=== PATIENT | female | born 1980 | race Caucasian/White ===

== ENCOUNTER → 2018-03-25 | Day surgery (SDC) | payer OTHER ==
[~2018-03-25] MED LIST: ACETAMINOPHEN 0 MG/0 ML RTUPB IV ONE; CEFAZOLIN 2 GM/D5W RTU 2 GM/50 ML RTUPB IV ONE; CEFAZOLIN 2 GM/D5W RTU 2 GM/50 ML RTUPB IV PRN; FENTANYL CITRATE INJ/PF 100 MCG/2 ML AMPUL ONE; LIDOCAINE 1% INJ-PF (10 MG/ML) 30 ML SDV ONE; METOCLOPRAMIDE HCL INJ/PF 10 MG/2 ML SDV IV ONE; METOCLOPRAMIDE HCL INJ/PF 10 MG/2 ML SDV ONE; MIDAZOLAM 2 MG/2 ML INJ ONE; ONDANSETRON HCL INJ/PF 4 MG/2 ML SDV ONE; PROPOFOL INJ 200 MG/20 ML VIAL IV ONE; RINGERS SOLUTION,LACTATED 1,000 ML IV ONE
[2018-03-25 15:06] LABS: HEMATOCRIT 41.7 % (36.0-47.0); HEMOGLOBIN 14.1 g/dL (12.0-15.5); MEAN CORPUSCULAR HEMOGLOBIN 28.2 pg (27.0-33.4); MEAN CORPUSCULAR HGB CONC 33.7 g/dL (32.0-36.0); MEAN CORPUSCULAR VOLUME 84 fl (80-97); PLATELET COUNT 228 10^3/uL (150-450); RED BLOOD COUNT 4.98 10^6/uL (3.72-5.28); RED CELL DISTRIBUTION WIDTH 15.2 % (11.5-14.0); WHITE BLOOD COUNT 7.2 10^3/uL (4.0-10.5)
[2018-03-25 15:11] VITALS: BP 111/73
== END ==
LOC: OROUT 14:09
PROVIDERS: ATTEND Orthopaedic Surgery
DX: M65.311 Trigger thumb, right thumb (principal); Z53.29 Procedure and treatment not carried out because of patient's decision for other reasons; R42 Dizziness and giddiness
CPT/HCPCS: 36415; 84703; 85027; J2250; J2765; J0690; J0131; J2405; J2704; J3010; J3490

== ENCOUNTER 2018-04-01 11:11 | Day surgery (SDC) | payer OTHER ==
[~2018-04-01 11:11] MED LIST changes: -ACETAMINOPHEN 0 MG/0 ML RTUPB IV ONE; +ACETAMINOPHEN 1,000 MG/100 ML RTUPB IV ONE; -CEFAZOLIN 2 GM/D5W RTU 2 GM/50 ML RTUPB IV ONE; +DEXAMETHASONE SOD PHOSPHATE INJ 4 MG/1 ML VIAL ONE; +LIDOCAINE 2% INJ-PF (20 MG/ML) 10 ML AMPUL ONE; -METOCLOPRAMIDE HCL INJ/PF 10 MG/2 ML SDV IV ONE; -METOCLOPRAMIDE HCL INJ/PF 10 MG/2 ML SDV ONE; -RINGERS SOLUTION,LACTATED 1,000 ML IV ONE
[2018-04-01] MEDS ORDERED: CEFAZOLIN 2 GM/D5W RTU 2 GM/50 ML RTUPB IV ONE (12:27)
[2018-04-01] MEDS ORDERED: MIDAZOLAM 2 MG/2 ML INJ ONE ×2 (12:37→14:17)
[2018-04-01] MEDS ORDERED: METOCLOPRAMIDE HCL INJ/PF 10 MG/2 ML SDV ONE (12:41)
[2018-04-01] MEDS ORDERED: MORPHINE SULFATE 10 MG/ML INJ IV PRN (15:38)
[2018-04-01] MEDS ORDERED: PROMETHAZINE HCL INJ 25 MG/1 ML VIAL IV PRN ×2 (15:38)
[2018-04-01] MEDS ORDERED: DIPHENHYDRAMINE HCL 50 MG/ML VIAL IV PRN (15:38)
[2018-04-01] MEDS ORDERED: ONDANSETRON HCL INJ/PF 4 MG/2 ML SDV IV PRN ×2 (15:38→15:49)
[2018-04-01] MEDS ORDERED: FENTANYL CITRATE INJ/PF 100 MCG/2 ML AMPUL IV PRN ×3 (15:38)
[2018-04-01] MEDS ORDERED: MEPERIDINE HCL/PF INJ 25 MG/1 ML DISP.SYRIN IV PRN (15:38)
[2018-04-01] MEDS ORDERED: HYDROCODONE/ACETAMINOPHEN 5-325 MG TABLET PO PRN (15:49)
--- NOTE | 2018-04-01 15:49 | Discharge Summary ---
Discharge Summary (SDC) - Discharge Final Diagnosis: Right Trigger Thumb Date of Surgery: 04/01/18 Discharge Date: 04/01/18 Condition: Good Treatment or Instructions: Schedule Follow Up w/ Dr. Dez Gilbert @ [facility] to be seen in 10-14 days or as scheduled [place]: [place]: [place]: May remove dressing on postop day #3, keep incision covered and dry. Ice and elevate May begin finger range of motion attempting to make full fist. Stool softener of choice when on pain medication. Do not take hydrocodone while breast-feeding until approved by processes chemical design engineer Prescriptions: Hydrocodone/Acetaminophen [Tyler 5-325 mg Tablet] 1 tab PO Q6 PRN #20 tablet PRN Reason: Referrals: RUDY JOSHI PA [Primary Care Provider] - Discharge Diet: As Tolerated Respiratory Treatments at Home: Deep Breathing/Coughing Discharge Activity: No Lifting Over 10 Pounds, No Lifting/Push/Pulling Report the Following to Your Physician Immediately: Fever over 101 Degrees, Unusual Bleeding, Redness, Swelling, Warmth, Increased Soreness
--- NOTE | 2018-04-01 15:49 | Operative Report ---
Operative Report DATE OF SURGERY: 04/01/18 PREOPERATIVE DIAGNOSIS: Right Trigger Thumb POSTOPERATIVE DIAGNOSIS: Same OPERATION: Right Trigger Thumb Release SURGEON: MARGARITA MCLEOD ANESTHESIA: GA COMPLICATIONS: None ESTIMATED BLOOD LOSS: minimal PROCEDURE: Indication for above procedure: 37-year-old female with diagnosis of trigger thumb. Patient has catching and locking which we attempted treatment conservatively with injections which failed to provide long-term relief. After discussing risks and benefits of operative versus continued nonoperative intervention decision was made to proceed with operative treatment. Patient verbalized understanding consented for the surgical procedure. Procedure In Detail: Patient was seen and evaluated in the preoperative holding area. The RIGHT upper extremity was initialized and marked. Patient received 2g of Ancef IV for bacterial prophylaxis. Patient was taken back to the operative room where transferred to the operative table. Once they were adequately anesthetized a nonsterile tourniquet was placed on the upper extremity. A surgical team debriefing was performed ensuring all instrumentation was available, the surgical procedure was discussed with possible concerns reviewed. A digital block was performed utilizing 10 mL of 1% lidocaine without epinephrine. The upper extremity was prepped with chlorhexidine and alcohol and draped in a sterile fashion. A timeout was done identifying correct patient, procedure and extremity everyone in attendance agree with this and verbalized no concerns. The extremity was exsanguinated the tourniquet was inflated to 250 mmHg. Transverse skin incision was made centered over the A1 sheng of the right thumb. The radial and ulnar neurovascular bundles were identified and retracted from the wound. The A1 sheng was identified and incised. The A1 sheng was released to the level of the oblique sheng but not through the oblique sheng. The palmar aponeurotic sheng was released proximal to the A1 sheng. Patient was then awoken from MAC anesthesia and made a full stencil sprayer there is no evidence of residual triggering or locking. The wound was then copiously irrigated with normal saline. Skin was closed with interrupted 4-0 nylon suture. Wound was dressed with Xeroform and a soft dressing. Sponge counts, instrument counts, needle counts counts were correct. Patient was then awoken from anesthesia. Transferred from the operating room table to the operating room stretcher. There was no intraoperative complications patient tolerated procedure well stable to PACU. Postoperative plan: Patient will follow-up as scheduled for wound check. They will call with any questions or concerns.
[2018-04-01 17:59] VITALS: BP 115/77
[2018-04-01 18:46] LABS: HEMATOCRIT 45.2 % (36.0-47.0); HEMOGLOBIN 15.2 g/dL (12.0-15.5); MEAN CORPUSCULAR HEMOGLOBIN 28.6 pg (27.0-33.4); MEAN CORPUSCULAR HGB CONC 33.6 g/dL (32.0-36.0); MEAN CORPUSCULAR VOLUME 85 fl (80-97); PLATELET COUNT 267 10^3/uL (150-450); RED BLOOD COUNT 5.31 10^6/uL (3.72-5.28); RED CELL DISTRIBUTION WIDTH 15.3 % (11.5-14.0); WHITE BLOOD COUNT 6.5 10^3/uL (4.0-10.5)
== END 2018-04-01 17:35 | disposition home or self-care (01) ==
LOC: OROUT 11:11
PROVIDERS: ATTEND Orthopaedic Surgery
DX: M65.311 Trigger thumb, right thumb (principal); J45.909 Unspecified asthma, uncomplicated; K58.9 Irritable bowel syndrome, unspecified; Z79.899 Other long term (current) drug therapy
CPT/HCPCS: 36415; 85027; 81025; 26055; J2250; J1100; J3490 ×2; J2765; J2405; J2704; J0690; J0131; 1810; J3010